=== PATIENT | female | born 1975 | race Caucasian/White ===

== ENCOUNTER 2024-03-22 00:29 | Emergency (ER) | payer OTHER, SELFPAY ==
[2024-03-22 00:34] VITALS: BP 147/80; PULSE 59; TEMP 36.4; O2SAT 99; BMI 29.0
[2024-03-22] MEDS: DOXYCYCLINE MONOHYDRATE 100 MG CAPSULE PO (01:07)
[2024-03-22] MEDS: OXYCODONE HCL/ACETAMINOPHEN 5MG/325MG 1 TAB PO (01:07)
--- NOTE | 2024-03-22 01:53 | ED.GENADUL1 ---
HPI HPI - General Adult General Chief complaint: Headache Stated complaint: headache Time Seen by Provider: 03/22/24 00:38 Source: patient Mode of arrival: walk-in Limitations: no limitations History of Present Illness HPI narrative: 49-year-old female to the emergency department chief complaint of pain. Patient reports she has had a sebaceous cyst on her scalp for many years. It began to hurt tonight. She describes the pain as a 10/10 icepick in her skull pain. No injury to it. No fever, sweats, chills. No other complaints. Related Data Previous Rx's ?Medication ?Instructions ?Recorded doxycycline monohydrate 100 mg 100 mg PO BID 7 days #14 caps 03/22/24 capsule oxycodone-acetaminophen 5 mg-325 1 tab PO Q6H PRN pain 3 days #12 03/22/24 mg tablet (Percocet) tabs Allergies Allergy/AdvReac Type Severity Reaction Status Date / Time ciprofloxacin (From Cipro) Allergy Mild Gastrointestinal Verified 03/22/24 00:39 Upset Opioid HPI Opioid Management Most Recent Opioid Data: Last Pain Scale 8 03/22/24 00:38 03/22/24 Review of Systems ROS Status of ROS 10 or more systems reviewed and unremarkable except as noted in history and below PFSH PFSH Social History Little interest or pleasure in doing things: not at all Feeling down, depressed, or hopeless: not at all Exam Narrative Exam Narrative: VITALS: I have reviewed the triage vital signs. GENERAL: Well developed, well appearing adult in no acute distress. NEURO: Alert and oriented. Moves all extremities. Face is symmetric and expressive. EYES: PERRL. No scleral icterus or conjunctival injection. No discharge. HENT: Normocephalic, atraumatic. Hearing is grossly intact. Nares grossly patent and without discharge. Mucous membranes moist. Pea-sized sebaceous cyst that is mildly inflamed to the right parietal region. NECK: No JVD. Patient moves neck without restriction. EXTREMITIES: Symmetric muscle bulk. No joint swelling. No clubbing, cyanosis, or deformity. SKIN: Warm and dry. Normal turgor. No rash or lesions appreciated. PSYCH: Mood, affect, and interaction is appropriate to the setting. Constitutional Vital Signs, click to edit/add: Last Vital Signs Temp 97.6 F 03/22/24 00:34 Pulse 59 L 03/22/24 00:34 Resp 18 03/22/24 00:34 BP 147/80 H 03/22/24 00:34 Pulse Ox 99 03/22/24 00:34 O2 Del Method Room Air 03/22/24 00:34 Course Vital Signs Vital signs: Vital Signs Temperature 97.6 F 03/22/24 00:34 Pulse Rate 59 L 03/22/24 00:34 Respiratory Rate 18 03/22/24 00:34 Blood Pressure 147/80 H 03/22/24 00:34 Pulse Oximetry 99 03/22/24 00:34 Oxygen Delivery Method Room Air 03/22/24 00:34 Temperature 97.6 F 03/22/24 00:34 Pulse Rate 59 L 03/22/24 00:34 Respiratory Rate 18 03/22/24 00:34 Blood Pressure 147/80 H 03/22/24 00:34 Pulse Oximetry 99 03/22/24 00:34 Oxygen Delivery Method Room Air 03/22/24 00:34 Medical Decision Making MDM Narrative Medical decision making narrative: 49-year-old female to the emergency department chief complaint of painful inflamed sebaceous cyst. She has a history of this. She has had several of them removed by her family doctor. Vital stable. Neurologic examination nonfocal. She is pinpoint tender at the nodule. It hurts to the touch. Will treat with antibiotic. Recommended she follow-up with her family doctor for removal. Percocet for pain. OARRS reviewed. Patient was discharged home. Medical Records Medical records reviewed: Yes I reviewed the patient's medical records Discharge Plan Discharge Chief Complaint: Headache Clinical Impression: Sebaceous cyst Patient Disposition: Home, Self-Care Time of Disposition Decision: 00:55 Condition: Good Mode of Transportation: Private Vehicle Prescriptions / Home Meds: New doxycycline monohydrate 100 mg capsule 100 mg PO BID 7 Days Qty: 14 0RF oxycodone-acetaminophen [Percocet] 5-325 mg tablet 1 tab PO Q6H PRN (Reason: pain) 3 Days Qty: 12 0RF Print Language: Portuguese Instructions: Cyst (ED) Additional Instructions: Call the office of your primary care doctor to arrange for follow-up within the above-stated timeframe. Your ED visit was focused on your acute issue and does not replace primary care. You should review your labs, imaging, and diagnoses from this ED visit with your primary care physician. There may be non-emergent/ incidental findings that need further evaluation. You should review your vital signs including blood pressure with your PCP. If you were prescribed medications you should discuss possible side-effects and drug interactions with your pharmacist. Call 911 or go to the nearest Emergency Department if you develop any new or worsening symptoms. Referrals: SOL SANCHEZ [Primary Care Provider] - 1 week Discharge Date/Time: 03/22/24 01:10
== END 2024-03-22 01:10 | disposition home or self-care (01) ==
PROVIDERS: Emergency Provider Student in an Organized Health Care Education/Training Program; PCP Family Medicine
DX: L72.3 Sebaceous cyst (principal)
CPT/HCPCS: 99283

== ENCOUNTER 2024-04-26 20:03 | Emergency (ER) | payer OTHER, SELFPAY ==
[2024-04-26] VITALS (10 sets, daily range): BP systolic 106–119; BP diastolic 69–78; PULSE 57–76; TEMP 37; O2SAT 91–100; BMI 28.8
--- NOTE | 2024-04-26 20:54 | ECG_ITS ---
The [facility] Test Date: 2024-04-26 Pat Name: THIEN DIAZ Department: Room: - Gender: Female Disability Rater: : 1975 Requested By: [id number] Order Number: [id number] Reading MD: DAISHA DELUNA Measurements Intervals [place] Rate: 55 P: 34 CT: 124 QRS: 69 QRSD: 86 T: 46 QT: 404 QTc: 394 Interpretive Statements 1100 Sinus rhythm No previous ECG available for comparison Electronically Signed On 04-28-2024 6:58:41 EST by DAISHA DELUNA
--- NOTE | 2024-04-26 20:54 | CT_ITS ---
The [address] [address] Patient Name: THIEN DIAZ MRN: [id number] date: 1975 Sex: F Assigned Patient Location: ER Current Patient Location: Accession/Order Number: [id number] Exam Date: 04/26/2024 21:33 Report Date: 04/26/2024 22:10 At the request of: BON MARKER Procedure: CT abdomen pelvis w con EXAM: CT abdomen pelvis w con TECHNIQUE: Axial CT images were obtained of the abdomen and pelvis with intravenous contrast. Sagittal and coronal reformatted images were also obtained. Dose reduction techniques were achieved by using automated exposure control and/or adjustment of mA and/or kV according to patient size and/or use of iterative reconstruction technique. HISTORY: RLQ abd pain, fever COMPARISON: None. FINDINGS: Lower chest: The lower lungs are clear. Liver: 15 mm heterogeneous low-attenuation lesion laterally within segment 5 of liver. Gallbladder: The gallbladder is unremarkable. There is no intra or extrahepatic biliary dilatation. Pancreas: The pancreas is homogeneous without evidence for mass lesion or inflammation. Spleen: The spleen is unremarkable without evidence for mass lesion. Adrenal glands: The adrenal glands are unremarkable Kidneys and bladder: Multifocal chronic scarring of the left renal cortex. Unremarkable right kidney. The ureters demonstrate normal caliber. The urinary bladder is unremarkable. GI Tract: Stomach is unremarkable. Visualized small bowel is unremarkable without evidence for obstruction or active inflammation. No CT evidence for acute appendicitis.Wall thickening throughout the colon, more significant within the proximal sigmoid colon. Liquid stool within the distal colon. Reproductive: 3.8 cm cyst of the left ovary appears simple. Right ovary is unremarkable. Lymph nodes: No retroperitoneal or abdominal lymphadenopathy. Vascular: The aorta is not dilated. Mesenteric, renal and iliac arteries are patent. Peritoneum: No free intraperitoneal air or fluid. No acute inflammation. Abdominal wall: Unremarkable without acute abnormality. CT/CT abdomen pelvis w con IMPRESSION: Wall thickening throughout a majority colon suggesting inflammatory or infectious colitis. Likely stool within the distal colon consistent with diarrheal illness. Subtle low-attenuation lesion within segment 5 of liver. Further evaluation with pre and postcontrast MRI of liver should be considered for further evaluation. Electronically authenticated by: ROSSY LARA Date: 04/26/2024 22:10
--- NOTE | 2024-04-26 20:56 | ED.GENADUL1 ---
HPI HPI - General Adult General Chief complaint: Fever Stated complaint: FEVER Time Seen by Provider: 04/26/24 20:37 Source: patient Mode of arrival: walk-in Limitations: no limitations History of Present Illness HPI narrative: This 49-year-old female presents for evaluation of fevers, chills, nausea, generalized weakness, poor appetite with nausea and diarrhea. The symptoms started Fede, 3 days ago. The patient states multiple people at her job are also sick. She has recently been on doxycycline, clindamycin and Augmentin for an infected sebaceous cyst on her scalp. She is not currently taking any antibiotics. She states that her diarrhea started out as brown liquid stool and is now water. She has abdominal pain and localizes to the right lower quadrant. She denies any headache, nasal congestion, sore throat runny nose or cough. She has no chest pain or shortness of breath. She states she is urinating some but mostly when she has an episode of diarrhea. She denies any specific leg pain or cramps. She denies any specific back pain. She states she does feel achy but thinks it is from laying around in bed for the past several days. Related Data Previous Rx's ?Medication ?Instructions ?Recorded doxycycline monohydrate 100 mg 100 mg PO BID 7 days #14 caps 03/22/24 capsule oxycodone-acetaminophen 5 mg-325 1 tab PO Q6H PRN pain 3 days #12 03/22/24 mg tablet (Percocet) tabs Allergies Allergy/AdvReac Type Severity Reaction Status Date / Time ciprofloxacin (From Cipro) Allergy Mild Gastrointestinal Verified 04/26/24 20:44 Upset Opioid HPI Opioid Management Most Recent Opioid Data: Last Pain Scale 3 04/26/24 22:00 04/26/24 Last ED Pain Assessment 04/26/24 22:00 Review of Systems ROS Status of ROS 10 or more systems reviewed and unremarkable except as noted in history and below PFSH PFSH Social History Little interest or pleasure in doing things: not at all Feeling down, depressed, or hopeless: not at all Exam Narrative Exam Narrative: Vital signs and Nursing Notes reviewed: Patient is afebrile with a normal pulse, normal blood pressure, she is not hypoxic with pulse ox of 100% on room air General: Awake, alert, oriented, nontoxic but mildly ill-appearing female, no respiratory distress HEENT: Normocephalic atraumatic, mucous membranes are dry with a thick white film on the patient's tongue, no swelling of the tongue, uvula or pharyngeal soft tissues Neck: Supple, no meningeal signs, no anterior or posterior cervical lymphadenopathy Chest: Lungs are clear to auscultation with good air entry, there is no wheezing rhonchi or rales appreciated no accessory muscle use, patient is speaking in complete sentences-no chest wall tenderness to palpation CVS: Regular rate and rhythm S1-S2, no murmurs rubs or gallops, pulses are brisk and equal bilaterally ABD: Soft, nondistended, generalized abdominal tenderness, localizes to the right lower quadrant with voluntary guarding, no pulsatile masses appreciated Extremities: Moving all extremities, no lower extremity tenderness or swelling noted, negative Homans' sign, pulses are brisk and equal bilaterally Skin: Normal in appearance without rash,pallor, petechiae or purpura Neuro: No focal deficits Constitutional Vital Signs, click to edit/add: Last Vital Signs Temp 98.6 F 04/26/24 20:41 Pulse 59 L 04/26/24 22:00 Resp 15 04/26/24 22:00 BP 106/71 04/26/24 21:59 Pulse Ox 97 04/26/24 22:00 O2 Del Method Room Air 04/26/24 20:41 Course Vital Signs Vital signs: Vital Signs Temperature 98.6 F 04/26/24 20:41 Pulse Rate 69 04/26/24 20:41 Respiratory Rate 16 04/26/24 20:41 Blood Pressure 113/71 04/26/24 20:41 Pulse Oximetry 100 04/26/24 20:41 Oxygen Delivery Method Room Air 04/26/24 20:41 Temperature 98.6 F 04/26/24 20:41 Pulse Rate 59 L 04/26/24 22:00 Respiratory Rate 15 04/26/24 22:00 Blood Pressure 106/71 04/26/24 21:59 Pulse Oximetry 97 04/26/24 22:00 Oxygen Delivery Method Room Air 04/26/24 20:41 Medical Decision Making MDM Narrative Medical decision making narrative: This 49-year-old female presents for evaluation of 3 days of fevers, chills, abdominal cramps with diarrhea. She has recently been on doxycycline and Augmentin and clindamycin for an infected sebaceous cyst in her scalp. She has not currently on any biotics but has been having diarrhea for the past 3 days that started out as brown stool and is now liquid diarrhea. She is also having abdominal cramps. She does not have any upper respiratory symptoms. She states she feels that she has had a fever because she has had chills and sweats however she does not have any documentation of a fever. She has not taken her temperature at home. In emergency department her temperature was 99.1. She is mildly tender in her right lower quadrant on exam. An IV was placed and she was medicated with IV fluids, Zofran, morphine and Pepcid. Routine labs were ordered. Septic workup was ordered including 2 sets of blood cultures, lactic acid, CBC with differential, comprehensive metabolic profile. CT scan of the abdomen pelvis. An EKG was done upon arrival that is a sinus rhythm at 55 bpm. Influenza and COVID-19 testing are negative. She has a normal white count and hemoglobin. Electrolytes are normal with exception of a mildly low potassium at 3.2. Lactic acid is normal. Blood cultures are pending. CT scan of the abdomen pelvis shows a diffuse colitis without any perforation free air or free fluid or other abnormal findings. The results of the CT scan were discussed with her and she was given a copy for her records. We discussed treatment of colitis and I explained to her it is often antibiotics. She is very reluctant to take more antibiotics after recently being on 3 different antibiotics but ultimately decided that she would take Flagyl. She will be sent home with a requisition for C. difficile assay as she did not have any diarrhea while in the emergency department. On reevaluation she is feeling much better. She declines the need for additional IV fluids. She is tolerating clear liquids. She will be discharged home with prescription for Flagyl, Bentyl and Zofran. She was encouraged to drink plenty of fluids and given a note for work. I also encouraged her to try to eat yogurt that had probiotics in it or purchase Align probiotic to help restore her gut feliciano in light of the recent antibiotic use and to prevent C. difficile. Medical Records Medical records reviewed: Yes I reviewed the patient's medical records Medical records narrative: The [address] [address] [address] Scan Report Signed Patient: THIEN DIAZ MR#: [id number] : 1975 Acct:[id number] Age/Sex: 49 / F ADM Date: 04/26/24 Loc: ER Attending Dr: Ordering Physician: Michelle Bey Date of Service: 04/26/24 Procedure(s): CT abdomen pelvis w con Accession Number(s): [id number] cc: SOL SANCHEZ ~ [place] [address] [place] [address] Patient Name: THIEN DIAZ MRN: [facility]:[id number] date: 1975 Sex: F Assigned Patient Location: ER Current Patient Location: ER Accession/Order Number: [id number] Exam Date: 04/26/2024 21:33 Report Date: 04/26/2024 22:10 At the request of: MICHELLE BEY Procedure: CT abdomen pelvis w con EXAM: CT abdomen pelvis w con TECHNIQUE: Axial CT images were obtained of the abdomen and pelvis with intravenous contrast. Sagittal and coronal reformatted images were also obtained. Dose reduction techniques were achieved by using automated exposure control and/or adjustment of mA and/or kV according to patient size and/or use of iterative reconstruction technique. HISTORY: RLQ abd pain, fever COMPARISON: None. FINDINGS: Lower chest: The lower lungs are clear. Liver: 15 mm heterogeneous low-attenuation lesion laterally within segment 5 of liver. Gallbladder: The gallbladder is unremarkable. There is no intra or extrahepatic biliary dilatation. Pancreas: The pancreas is homogeneous without evidence for mass lesion or inflammation. Spleen: The spleen is unremarkable without evidence for mass lesion. Adrenal glands: The adrenal glands are unremarkable Kidneys and bladder: Multifocal chronic scarring of the left renal cortex. Unremarkable right kidney. The ureters demonstrate normal caliber. The urinary bladder is unremarkable. GI Tract: Stomach is unremarkable. Visualized small bowel is unremarkable without evidence for obstruction or active inflammation. No CT evidence for acute appendicitis.Wall thickening throughout the colon, more significant within the proximal sigmoid colon. Liquid stool within the distal colon. Reproductive: 3.8 cm cyst of the left ovary appears simple. Right ovary is unremarkable. Lymph nodes: No retroperitoneal or abdominal lymphadenopathy. Vascular: The aorta is not dilated. Mesenteric, renal and iliac arteries are patent. Peritoneum: No free intraperitoneal air or fluid. No acute inflammation. Abdominal wall: Unremarkable without acute abnormality. CT/CT abdomen pelvis w con IMPRESSION: Wall thickening throughout a majority colon suggesting inflammatory or infectious colitis. Likely stool within the distal colon consistent with diarrheal illness. Subtle low-attenuation lesion within segment 5 of liver. Further evaluation with pre and postcontrast MRI of liver should be considered for further evaluation. Electronically authenticated by: ROSSY LARA Date: 04/26/2024 22:10 Lab Data Lab results reviewed: Yes I reviewed the patient's lab results Labs: Lab Results 04/26/24 04/26/24 Range/Units 21:05 21:08 WBC 5.8 (4.0-11.0) 10^3/uL RBC 4.55 (4.20-5.40) 10^6/uL Hgb 13.2 (12.0-16.0) g/dL Hct 39.2 (36.0-48.0) % MCV 86.2 (81.0-99.0) fL MCH 29.0 (26.7-34.0) pg MCHC 33.7 (29.9-35.2) g/dL RDW 13.3 (11.0-15.0) % Plt Count 246 (150-450) 10^3/uL MPV 10.9 (9.5-13.5) fL Neut % (Auto) 65.6 (43.0-75.0) % Lymph % (Auto) 15.3 L (20.5-60.0) % [place] % (Auto) 15.6 H (1.7-12.0) % Eos % (Auto) 3.0 (0.9-7.0) % Baso % (Auto) 0.2 (0.2-2.0) % Neut # (Auto) 3.8 (1.4-6.5) 10^3/uL Lymph # (Auto) 0.9 L (1.2-3.8) 10^3/uL [place] # (Auto) 0.9 H (0.3-0.8) 10^3/uL Eos # (Auto) 0.2 (0.0-0.7) 10^3/uL Baso # (Auto) 0.0 (0.0-0.1) 10^3/uL Abs Immat Gran (auto) 0.02 (0.00-0.03) 10^3/uL Imm/Tot Granulo (auto) 0.3 (0.0-0.5) % Sodium 136 (136-145) mmol/L Potassium 3.2 L (3.5-5.1) mmol/L Chloride 104 (98-107) mmol/L Carbon Dioxide 27.3 (21.0-32.0) mmol/L Anion Gap 7.9 BUN 7.0 (7.0-18.0) mg/dL Creatinine 0.97 (0.55-1.02) mg/dL Est GFR ( Amer) >60 (>=60 mL/min/1.73m^2) Est GFR (Non-Af Amer) >60 (>=60 mL/min/1.73m^2) BUN/Creatinine Ratio 7.2 Glucose 124 H (74-106) mg/dL Lactate 0.9 (0.4-2.0) mmol/L Calcium 8.7 (8.5-10.1) mg/dL Total Bilirubin 0.4 (0.2-1.0) mg/dL AST 10 L (15-37) U/L ALT 9 L (14-59) U/L Alkaline Phosphatase 48 (46-116) U/L Total Protein 6.3 L (6.4-8.2) g/dL Albumin 3.0 L (3.4-5.0) g/dL Globulin 3.3 g/dL Albumin/Globulin Ratio 0.9 Lipase 24.0 (16.0-77.0) U/L Influenza Type A Ag Negative Influenza Type B Ag Negative SARS-CoV-2 Ag (CV2AG) Negative (NEGATIVE) ECG Data Attestation: I personally reviewed and interpreted this ECG as follows: (Sinus bradycardia 55 bpm, normal axis, normal intervals, nonspecific ST changes with flattening of T waves, no acute ST segment elevation or T wave inversion) Discharge Plan Discharge Chief Complaint: Fever Clinical Impression: Colitis Patient Disposition: Home, Self-Care Time of Disposition Decision: 22:26 Condition: Good Prescriptions / Home Meds: No Action doxycycline monohydrate 100 mg capsule 100 mg PO BID 7 Days Qty: 14 0RF oxycodone-acetaminophen [Percocet] 5-325 mg tablet 1 tab PO Q6H PRN (Reason: pain) 3 Days Qty: 12 0RF Print Language: Romansh Instructions: Acute Diarrhea (ED), Colitis (ED) Referrals: SOL SANCHEZ [Primary Care Provider] - 1 week
[2024-04-26] MEDS: 0.9 % SODIUM CHLORIDE 1,000 ML 1000 ML IV (21:07)
[2024-04-26] MEDS: FAMOTIDINE/PF 20 MG/2 ML VIAL IV (21:07)
[2024-04-26] MEDS: ONDANSETRON PF 4 MG/2 ML VIAL IV (21:07)
[2024-04-26] MEDS: MORPHINE SULFATE 4 MG/ML VIAL IV (21:08)
[2024-04-26 21:25] LABS: Basophils Percent Auto 0.2 % (0.2-2.0); Eosinophils Absolute Auto 0.2 10^3/uL (0.0-0.7); Hematocrit 39.2 % (36.0-48.0); Hemoglobin 13.2 g/dL (12.0-16.0); Immature Granulocytes Abs Auto 0.02 10^3/uL (0.00-0.03); Immature Granulocytes Pct Auto 0.3 % (0.0-0.5); Lymphocytes Absolute Auto 0.9 10^3/uL (1.2-3.8); Lymphocytes Percent Auto 15.3 % (20.5-60.0); Mean Corpuscular HGB Conc 33.7 g/dL (29.9-35.2); Mean Corpuscular Volume 86.2 fL (81.0-99.0); Mean Platelet Volume 10.9 fL (9.5-13.5); Monocytes Absolute Auto 0.9 10^3/uL (0.3-0.8); Monocytes Percent Auto 15.6 % (1.7-12.0); Neutrophils Absolute Auto 3.8 10^3/uL (1.4-6.5); Neutrophils Percent Auto 65.6 % (43.0-75.0); Platelet Count 246 10^3/uL (150-450); Red Blood Count 4.55 10^6/uL (4.20-5.40); Red Cell Distribution Width 13.3 % (11.0-15.0); White Blood Count 5.8 10^3/uL (4.0-11.0)
[2024-04-26 21:36] LABS: Influenza Virus A Antigen Negative; Influenza Virus B Antigen Negative; Internal Control Within Normal Limits
[2024-04-26 21:37] LABS: Internal Control Within Normal Limits; SARS-CoV-2 Ag NEGATIVE (NEGATIVE)
[2024-04-26 21:39] LABS: Alanine Aminotransferase 9 U/L (14-59); Albumin Globulin Ratio 0.9; Alkaline Phosphatase 48 U/L (46-116); Anion Gap 7.9; Aspartate Amino Transferase 10 U/L (15-37); BUN Creatinine Ratio 7.2; Bilirubin Total 0.4 mg/dL (0.2-1.0); Calcium 8.7 mg/dL (8.5-10.1); Carbon Dioxide 27.3 mmol/L (21.0-32.0); Chloride 104 mmol/L (98-107); Estimated GFR (African America >60 (>=60 mL/min/1.73m^2); Estimated GFR (Non-African Ame >60 (>=60 mL/min/1.73m^2); Globulin 3.3 g/dL; Glucose 124 mg/dL (74-106); Potassium 3.2 mmol/L (3.5-5.1); Sodium 136 mmol/L (136-145); Total Protein 6.3 g/dL (6.4-8.2)
[2024-04-26 21:46] LABS: Lactate/Lactic Acid 0.9 mmol/L (0.4-2.0)
[2024-04-26] MEDS: POTASSIUM CHLORIDE 10 MEQ ER TABLET 20 MEQ PO (22:53)
[2024-04-26] MEDS: METRONIDAZOLE 250 MG TABLET 500 MG PO (22:54)
--- NOTE | 2024-04-27 17:05 | PC.NURSE ---
Patient notified of +C-diff results. Encouraged to f/u with PCP, use proper/frequent handwashing, and avoid shared use of bathroom if possible. States understands.
== END 2024-04-26 23:02 | disposition home or self-care (01) ==
PROVIDERS: Emergency Provider Emergency Medicine; PCP Family Medicine
DX: K52.9 Noninfective gastroenteritis and colitis, unspecified (principal); N83.202 Unspecified ovarian cyst, left side; R10.31 Right lower quadrant pain
CPT/HCPCS: 36415; 74177; 80053; 83605; 83690; 85025; 87040; 87493; 87804; 87811; 93005; 96361; 96374; 96375; 99285; J2270; J2405; Q9967

== ENCOUNTER 2024-04-27 09:32 | Outpatient (REF) | payer OTHER, SELFPAY ==
[2024-04-27 16:53] LABS: C. Difficile PCR POSITIVE
== END 2024-04-27 09:33 | disposition home or self-care (01) ==
LOC: LAB 09:32
PROVIDERS: PCP Family Medicine; Visit Provider Emergency Medicine
DX: K52.9 Noninfective gastroenteritis and colitis, unspecified (principal)
CPT/HCPCS: 87493

== ENCOUNTER 2024-05-08 15:55 | Emergency (ER) | payer OTHER, SELFPAY ==
[2024-05-08 15:58] VITALS: BP 108/59; PULSE 102; TEMP 36.7; O2SAT 99; BMI 31.1
[2024-05-08 16:52] LABS: Hemoglobin 13.5 g/dL (12.0-16.0); Mean Corpuscular HGB Conc 32.9 g/dL (29.9-35.2); Mean Corpuscular Hemoglobin 28.8 pg (26.7-34.0); Mean Corpuscular Volume 87.6 fL (81.0-99.0); Mean Platelet Volume 10.4 fL (9.5-13.5); Platelet Count 293 10^3/uL (150-450); Red Blood Count 4.68 10^6/uL (4.20-5.40); Red Cell Distribution Width 14.1 % (11.0-15.0); White Blood Count 16.7 10^3/uL (4.0-11.0)
[2024-05-08 17:01] LABS: HCG Qualitative NEGATIVE (NEGATIVE); Internal Control Within Normal Limits
[2024-05-08 17:06] LABS: Alanine Aminotransferase 32 U/L (14-59); Albumin Globulin Ratio 1.2; Albumin Level 3.4 g/dL (3.4-5.0); Alkaline Phosphatase 49 U/L (46-116); Anion Gap 10.2; Aspartate Amino Transferase 18 U/L (15-37); BUN Creatinine Ratio 8.1; Bilirubin Total 0.8 mg/dL (0.2-1.0); Carbon Dioxide 27.3 mmol/L (21.0-32.0); Chloride 103 mmol/L (98-107); Estimated GFR (African America >60 (>=60 mL/min/1.73m^2); Estimated GFR (Non-African Ame 60 (>=60 mL/min/1.73m^2); Globulin 2.9 g/dL; Glucose 125 mg/dL (74-106); Potassium 4.5 mmol/L (3.5-5.1); Sodium 136 mmol/L (136-145); Total Protein 6.3 g/dL (6.4-8.2)
[2024-05-08 17:11] LABS: Band Neutrophils Absolute 0.3 10^3/uL (0.0-0.3); Lymphocytes Absolute Manual 1.33 10^3/uL (1.20-3.80); Segmented Neut Absolute Manual 14.52 10^3/uL (1.4-6.5)
--- NOTE | 2024-05-08 17:11 | CT_ITS ---
[place] [id number] Patient Name: THIEN DIAZ MRN: [id number] date: 1975 Sex: F Assigned Patient Location: ER Current Patient Location: ER Accession/Order Number: [id number] Exam Date: 05/08/2024 17:08 Report Date: 05/08/2024 18:34 At the request of: JUAN FRANCISCO BAILEY Procedure: CT abdomen pelvis wo con EXAM: CT scan of the abdomen and pelvis without contrast. Dose reduction technique used: Automated exposure control and/or adjustment of the mA and/or kV according to patient size and/or use of iterative reconstruction technique. REASON FOR EXAM: abd pain RLQ c-diff COMPARISON: CT scan dated 05/01/2024 FINDINGS: Diffuse colonic wall thickening, most probably within the ascending and transverse colon, this appears worsened than on 04/26/2024. Mild left renal parenchymal scarring. Small hepatic cyst. No renal, ureteral or bladder calculi. No hydronephrosis. Normal appendix. No free fluid in the abdomen or pelvis. No free intraperitoneal air. No dilated loops of small bowel or colon. Liver, pancreas, spleen, bilateral kidneys, and bilateral adrenal glands are otherwise unremarkable within the limitations of noncontrast CT. No lymphadenopathy in the abdomen or pelvis. Remainder unremarkable. CT/CT abdomen pelvis wo con IMPRESSION: Findings compatible with colitis which have worsened compared to 04/26/2024. Electronically authenticated by: SAMANTHA BOLANOS Date: 05/08/2024 18:34
--- NOTE | 2024-05-08 17:20 | ED_ITS ---
HPI - Abdominal Pain General Chief Complaint: Nausea/Vomiting/Diarrhea Stated Complaint: POSS CDIFF, HERE W/ IN LAST 10 DAYS Time Seen by Provider: 05/08/24 15:56 Source: patient Mode of arrival: walk-in Limitations: no limitations History of Present Illness HPI narrative: The patient with history of C. difficile diagnosed 10 days ago. She was treated at that time with Flagyl she mentioned that she was getting better until this morning when she started having nausea and abdominal pain, the abdomen pain is generalized but is mostly severe at the right lower quadrant Patient also had some nausea and vomiting and no fever or chills She went to her primary care doctor when she was provided with prescription medication that she mentioned that it was expensive Related Data Home Medications ?Medication ?Instructions ?Recorded ?Confirmed ondansetron HCl 4 mg tablet 4 mg PO Q6H PRN nausea and vomiting 05/08/24 05/08/24 Previous Rx's ?Medication ?Instructions ?Recorded doxycycline monohydrate 100 mg 100 mg PO BID 7 days #14 caps 03/22/24 capsule oxycodone-acetaminophen 5 mg-325 1 tab PO Q6H PRN pain 3 days #12 03/22/24 mg tablet (Percocet) tabs ondansetron 4 mg disintegrating 4 mg PO Q8H PRN nausea and 05/08/24 tablet vomiting 48 hours #10 tabs Allergies Allergy/AdvReac Type Severity Reaction Status Date / Time ciprofloxacin (From Cipro) Allergy Mild Gastrointestinal Verified 04/26/24 20:44 Upset Review of Systems ROS Status of ROS 10 or more systems reviewed and unremark able except as noted in history and below PFSH PFSH Social History Little interest or pleasure in doing things: not at all Feeling down, depressed, or hopeless: not at all Exam Narrative Exam Narrative: Nurses notes and vital signs reviewed and patient is not hypoxic. General: Well-appearing and in no apparent distress. Skin: Warm, dry, no pallor noted. No rash. Head: Normocephalic, atraumatic. Neck: Supple, non-tender. Eye: Pupils are equal, round and EOMI. No scleral icterus. Ears, Nose, Mouth, and Throat: TM are clear, no nasal mucosal hypertrophy. Oral mucosa is moist, no posterior oropharynx erythema, uvula is mid-line Cardiovascular: Regular Rate and Rhythm without murmur, gallop or rub. Respiratory: No accessory muscle use or respiratory distress. Lungs are clear to auscultation, no wheezing, rales or rhonchi Chest Wall: no tenderness Back: No midline thoracic or lumbar vertebral tenderness. No CVA tenderness Musculoskeletal: normal ROM, no calf or popliteal tenderness, no lower extremity edema/swelling GI: Abdomen is soft, non-distended. Normal bowel sounds. No masses appreciated. Tenderness upon deep palpation in the right side .no rebound, guarding, or rigidity noted. Neurological: A&O x4. No cranial nerve dysfunction observed. No truncal ataxia. Moves all extremities. Sensation intact. Psychiatric: Cooperative and interactive. Normal mood and affect. Constitutional Vital Signs, click to edit/add: Last Vital Signs Temp 98.1 F 05/08/24 15:58 Pulse 102 H 05/08/24 15:58 Resp 18 05/08/24 15:58 BP 108/59 05/08/24 15:58 Pulse Ox 99 05/08/24 15:58 O2 Del Method Room Air 05/08/24 15:58 Course Vital Signs Vital signs: Vital Signs Temperature 98.1 F 05/08/24 15:58 Pulse Rate 102 H 05/08/24 15:58 Respiratory Rate 18 05/08/24 15:58 Blood Pressure 108/59 05/08/24 15:58 Pulse Oximetry 99 05/08/24 15:58 Oxygen Delivery Method Room Air 05/08/24 15:58 Temperature 98.1 F 05/08/24 15:58 Pulse Rate 102 H 05/08/24 15:58 Respiratory Rate 18 05/08/24 15:58 Blood Pressure 108/59 05/08/24 15:58 Pulse Oximetry 99 05/08/24 15:58 Oxygen Delivery Method Room Air 05/08/24 15:58 MDM - Abdominal Pain MDM Narrative Medical decision making narrative: The patient did had leukocytosis but she had no elevated lactic acid and the rest of the chemistry was normal She was started on IV fluid and sent to Toradol and Zofran I provided her with 1 dose of Flagyl while awaiting for the CAT scan But the main plan will be starting the patient on vancomycin p.o. for the next 10 days The patient was feeling much better after initial treatment with IV fluid and Toradol and Zofran Her CAT scan did show increase in the colitis and although the patient lactic acid is normal and chemistry was within normal I did advise the patient to be admitted but she did not want that and she just wanted to go home with the vancomycin I explained to her that right now that she will be discharged with vancomycin 125 mg every 6 hours for the next 10 days and she was instructed that she need to observe improvement in the next 24 hours The patient to come back to the ER if no improvement within 24 hours and to follow-up with her primary care doctor soon as possible Lab Data Labs: Lab Results 05/08/24 Range/Units 16:43 WBC 16.7 H (4.0-11.0) 10^3/uL RBC 4.68 (4.20-5.40) 10^6/uL Hgb 13.5 (12.0-16.0) g/dL Hct 41.0 (36.0-48.0) % MCV 87.6 (81.0-99.0) fL MCH 28.8 (26.7-34.0) pg MCHC 32.9 (29.9-35.2) g/dL RDW 14.1 (11.0-15.0) % Plt Count 293 (150-450) 10^3/uL MPV 10.4 (9.5-13.5) fL Seg Neuts % (Manual) 87.0 H (43.0-75.0) Band Neutrophils % 2.0 (0-5) % Lymphocytes % (Manual) 8.0 L (20.5-60.0) % Monocytes % (Manual) 3.0 (1.7-12.0) % Eosinophils % (Manual) 0.0 L (0.9-7.0) % Basophils % (Manual) 0.0 L (0.2-2.0) % Neutrophils # (Manual) 14.52 H (1.4-6.5) 10^3/uL Band Neutrophils # 0.3 (0.0-0.3) 10^3/uL Lymphocytes # (Manual) 1.33 (1.20-3.80) 10^3/uL Monocytes # (Manual) 0.50 (0.30-0.80) 10^3/uL Eosinophils # (Manual) 0.00 (0.00-0.70) 10^3/uL Basophils # (Manual) 0.00 (0.00-0.10) 10^3/uL Sodium 136 (136-145) mmol/L Potassium 4.5 (3.5-5.1) mmol/L Chloride 103 (98-107) mmol/L Carbon Dioxide 27.3 (21.0-32.0) mmol/L Anion Gap 10.2 BUN 8.0 (7.0-18.0) mg/dL Creatinine 0.99 (0.55-1.02) mg/dL Est GFR ( Amer) >60 (>=60 mL/min/1.73m^2) Est GFR (Non-Af Amer) 60 (>=60 mL/min/1.73m^2) BUN/Creatinine Ratio 8.1 Glucose 125 H (74-106) mg/dL Lactate 1.0 (0.4-2.0) mmol/L Calcium 9.0 (8.5-10.1) mg/dL Total Bilirubin 0.8 (0.2-1.0) mg/dL AST 18 (15-37) U/L ALT 32 (14-59) U/L Alkaline Phosphatase 49 (46-116) U/L Total Protein 6.3 L (6.4-8.2) g/dL Albumin 3.4 (3.4-5.0) g/dL Globulin 2.9 g/dL Albumin/Globulin Ratio 1.2 Serum HCG, Qual Negative (NEGATIVE) Discharge Plan Discharge Chief Complaint: Nausea/Vomiting/Diarrhea Clinical Impression: Clostridium difficile enteritis Patient Disposition: Home, Self-Care Time of Disposition Decision: 17:23 Condition: Good Prescriptions / Home Meds: New ondansetron 4 mg tablet,disintegrating 4 mg PO Q8H PRN (Reason: nausea and vomiting) 2 Days Qty: 10 0RF No Action doxycycline monohydrate 100 mg capsule 100 mg PO BID 7 Days Qty: 14 0RF oxycodone-acetaminophen [Percocet] 5-325 mg tablet 1 tab PO Q6H PRN (Reason: pain) 3 Days Qty: 12 0RF ondansetron HCl 4 mg tablet 4 mg PO Q6H PRN (Reason: nausea and vomiting) Print Language: Trinidadian Instructions: C. Diff (Clostridioides Difficile) Infection (DC) Additional Instructions: The patient was discharged with 125 of vancomycin every 6 hours for the next 10 days Referrals: SOL SANCHEZ [Primary Care Provider] - 1 week
[2024-05-08] MEDS: KETOROLAC TROMETHAMINE 30 MG/ML VIAL 15 MG IVP (17:26)
[2024-05-08] MEDS: ONDANSETRON PF 4 MG/2 ML VIAL IV (17:26)
[2024-05-08] MEDS: 0.9 % SODIUM CHLORIDE 1,000 ML 1000 ML IV (17:26)
[2024-05-08] MEDS: METRONIDAZOLE/SODIUM CHLORIDE 500 MG/100 ML PREMIX 100 MG IV (18:05)
[2024-05-08] MEDS: VANCOMYCIN HCL 7,500 MG/150 ML BOTTLE 125 MG PO (19:08)
[2024-05-08 19:12] VITALS: BP 101/49; PULSE 80; TEMP 37.5; O2SAT 94
== END 2024-05-08 19:20 | disposition home or self-care (01) ==
PROVIDERS: Emergency Provider Emergency Medicine; PCP Family Medicine
DX: A04.72 Enterocolitis due to Clostridium difficile, not specified as recurrent (principal)
CPT/HCPCS: 36415; 74176; 80053; 83605; 84703; 85007; 85027; 96361; 96365; 96375; 99285; J1836; J1885; J2405

== ENCOUNTER 2024-11-15 15:02 | Emergency (ER) | payer OTHER, SELFPAY ==
[2024-11-15 15:06] VITALS: BP 132/75; PULSE 70; TEMP 36.7; O2SAT 100; BMI 27.7
--- NOTE | 2024-11-15 15:21 | ED_ITS ---
HPI - Extremity Problem General Chief complaint: Extremity Problem, Nontraumatic Stated complaint: infected right index finger tip Time Seen by Provider: 11/15/24 15:04 Source: patient Mode of arrival: walk-in Limitations: no limitations History of Present Illness HPI Narrative: Patient is a 49-year-old female who presents to the ER with concerns of increased pain to her right index finger. Patient states symptoms started last Saturday noting that her finger was sore before she got her nails done which happens every 2 to 3 weeks. She was then working in the yard and feels she may have got a thorn or a bee sting to the same finger with increased soreness and pain. She was seen in urgent care on had an x-ray that did not show any foreign body per patient and was started on Bactrim. She was advised to ice the finger with concerns of a FELON . Patient states she has taken Bactrim since but noticed increased pain today and redness along the ulnar side of her index finger. The area of question for thorn or bee sting is at the level of the middle phalanx radial aspect with very minimal evidence of erythema or skin irritation and appears separate from the nailbed. Patient unsure of her last tetanus. She is left-hand dominant. She denies any traumatic injury to her finger such as crush or fall. She denies a history of diabetes MD Complaint: Reports extremity pain and extremity swelling Onset (ago): week(s) Pain Consistency: Reports constant Location: Reports right Quality: Reports aching Relieving factors: Reports nothing Exacerbating factors: Reports palpation Related Data Home Medications ?Medication ?Instructions ?Recorded ?Confirmed No Known Home Medications 11/15/24 07/11/04 Allergies Allergy/AdvReac Type Severity Reaction Status Date / Time ciprofloxacin (From Cipro) Allergy Mild Gastrointestinal Verified 04/26/24 20:44 Upset Review of Systems ROS Constitutional Denies: fever or chills Eyes Denies: change in vision Ears, nose, mouth, and throat Denies: throat pain Cardiovascular Denies: chest pain Respiratory Denies: shortness of breath Gastrointestinal Denies: abdominal pain, nausea, vomiting or diarrhea Genitourinary Denies: painful urination Musculoskeletal Denies: back pain Neurological Denies: headache Psychiatric Denies: anxiety PFSH PFSH Social History Little interest or pleasure in doing things: not at all Feeling down, depressed, or hopeless: not at all Exam Narrative Exam Narrative: Nurse's notes and vital signs reviewed. Patient is not hypoxic. General: The patient appears well and in no apparent distress. Patient is resting comfortably on cart. Skin: Warm, dry, no pallor noted. Erythema most prominent to the ulnar aspect of the nail margin. Is also some erythema to the radial aspect of the nail margin but less prominent. No obvious streaking. Small possible puncture at the middle phalanx radial aspect with very localized reaction but no visible foreign body. Patient has 2 dark spots at the radial pad of her distal phalanx of the index finger that are nontender on palpation the pad of the finger is not overly tender. A bedside ultrasound was used and there was no fluid noted in the pad of the finger. Head: Normocephalic, atraumatic Eye: Normal conjunctiva Respiratory: Patient is in no distress Musculoskeletal: The hand and wrist shows no obvious deformity. There was mild swelling noted to ulnar aspect of index finger The patient had full rom despite pain. neg knavels sign. The patient had tenderness noted to the distal phalanx along the proximal nail bed and ulnar aspect. concerning for developing paronychia. skin wrinkle present to pad of finger and felon is less likely. The patient had no tenderness in the anatomical snuff box. The patient had no pain with axial loading of the thumb. Pulses are intact at brachial and radial 2+. There was no deficit at the elbow or shoulder. The patient has normal ca pillary refill to all distal digits. The patient has no evidence of cyanosis or mottling. The patient is able to flex and extend all digits without difficulty. Neurological: A&O x4, normal sensory, normal motor Psychiatric: Cooperative Constitutional Vital Signs, click to edit/add: Last Vital Signs Temp 98.0 F 11/15/24 15:06 Pulse 70 11/15/24 15:06 Resp 18 11/15/24 15:06 BP 132/75 11/15/24 15:06 Pulse Ox 100 11/15/24 15:06 O2 Del Method Room Air 11/15/24 15:06 Course Vital Signs Vital signs: Vital Signs Temperature 98.0 F 11/15/24 15:06 Pulse Rate 70 11/15/24 15:06 Respiratory Rate 18 11/15/24 15:06 Blood Pressure 132/75 11/15/24 15:06 Pulse Oximetry 100 11/15/24 15:06 Oxygen Delivery Method Room Air 11/15/24 15:06 Temperature 98.0 F 11/15/24 15:06 Pulse Rate 70 11/15/24 15:06 Respiratory Rate 18 11/15/24 15:06 Blood Pressure 132/75 11/15/24 15:06 Pulse Oximetry 100 11/15/24 15:06 Oxygen Delivery Method Room Air 11/15/24 15:06 MDM - Extremity (Nontraumatic) MDM Narrative Medical decision making narrative: Patient presents with what appears to be a slow-growing paronychia started on antibiotics on without relief yet. More swelling noted to the ulnar aspect of the finger. Treatment options discussed and incision and drainage recommended given patient's significant pain however bedside ultrasound did not reveal any significant fluid collections given the small amount of space. She reports having x-ray done on did not show any radiopaque foreign body but 2 organic areas of superficial foreign body were visible and patient co nsented to removal to eliminate this as a potential concern. Patient presents with appears to be a slow developing paronychia most prominence to the ulnar distal edge of the nail margin she does have a gel coating on her nail that is prominent in the long. Tetanus was updated foreign bodies along the radial aspect were nontender on palpation and easily removed during incision and drainage procedure which was discussed with the patient at bedside. She does not have significant pain over the pad of her finger for concern of a felon at this time in the distal ulnar aspect of the nail margin is most irritated with erythema and swelling. A bedside ultrasound was used and there was very minimal fluid in this location. There was no fluid noted along the pad of the finger and she is negative for Knievel signs. At this time we have recommended the patient soak the finger multiple times daily and continue her Bactrim. We discussed adding Augmentin but patient states she had C. difficile a year ago for a cyst on her head after being placed on multiple antibiotics. We discussed the need to follow-up in 2 days for reevaluation and possible repeat drainage procedure versus continued observation. She may return to the ER or her PCPs office for evaluation of this. We discussed the importance of soaking and pain medication as needed. Patient thankful had no further concerns or questions Patient was offered pain medications but states she is taking Tylenol and Motrin and has some leftover Percocet at home from another procedure. She will take least effective dose for pain control if needed and return to the ER if symptoms worsen or new symptoms develop. Patient aware at this time on clinical exam and with ultrasound evaluation of the fingertip I do not see a collection of fluid concerning for a Felon which was her chief concern. We discussed her nail soreness since visiting the nail salon last Saturday with a combination of symptoms today despite being placed on oral Bactrim. Has been icing her finger but not soaking it. The patient is to followup with primary care physician/ ER in next 2 days or to return to the emergency department should any of the signs or symptoms worsen or new symptoms develop. Patient had questions answered. The patient agrees with the following Diagnosis and Treatment plan and the patient will be discharged home. Discharge Plan Discharge Chief Complaint: Extremity Problem, Nontraumatic Clinical Impression: Paronychia of right index finger, Superficial foreign body (sliver) Patient Disposition: Home, Self-Care Time of Disposition Decision: 16:27 Condition: Good Prescriptions / Home Meds: No Action No Known Home Medications Print Language: Turkmen Instructions: Paronychia (ED) Additional Instructions: Follow up with pcp in 48 hours or return to ER for inspection SOAK with eposom salt or warm salt water solution, multiple times daily Referrals: SOL SANCHEZ [Primary Care Provider, Family Practice] - As soon as possible Procedures ED Procedure Instructions Procedures Procedures: Incision and drainage: paryonochia right index finger. A single layer of iodine was used to prep the area. Drapes were placed to ensure isolation of the abscess and surrounding skin tissue. A Digital block of the index finger was performed with 1% lidocaine and 0.5% Bupivicaine . Incision was made with an 11 blade along the most erythematous part of the ulnar aspect of the finger. small flash of clear/ yellow fluid express, but no purulent material a 21 G needle was use to seperate the nail boarder back to the eponicum, but no additional purulents or fluid was noted/ ( must prominent area is the distal ulnar nail edge were scapel was used, bleedig controlled. Pt had 2 superifical foreign bodies to radial aspect of finger which appeared organic and were easily removed with a seperate 21 G needle and pick ups. Pt tolerated procedure well and was neurovasc intact.. but noted pressure discomfort with repetitive squeezing pressure.. Patient is to follow-up in the next 2 days with PCP or ED to have area evaluated.
[2024-11-15] MEDS: ADACEL DIPH,PERTUSS(ACELL),TET VAC/PF 0.5 ML ADULT SYRINGE IM (15:32)
[2024-11-15] MEDS: LIDOCAINE HCL 1% 100 MG/10 ML MDV INJ (15:32)
[2024-11-15] MEDS: BUPIVACAINE HCL 0.5% PF 50 MG/10 ML VIAL 5 ML INJ (15:33)
== END 2024-11-15 16:36 | disposition home or self-care (01) ==
PROVIDERS: Emergency Provider Emergency Medicine; PCP Family Medicine
DX: L03.011 Cellulitis of right finger (principal); S60.450A Superficial foreign body of right index finger, initial encounter; X58.XXXA Exposure to other specified factors, initial encounter; Z23 Encounter for immunization
CPT/HCPCS: 10060; 90471; 90715; 99283; J0665

== ENCOUNTER 2024-12-05 12:49 | Emergency (ER) | payer OTHER, SELFPAY ==
[2024-12-05 12:56] VITALS: BP 130/77; PULSE 86; TEMP 36.6; O2SAT 96; BMI 27.4
--- NOTE | 2024-12-05 13:04 | XR_ITS ---
[facility] [id number] Patient Name: THIEN DIAZ MRN: [id number] date: 1975 Sex: F Assigned Patient Location: ER Current Patient Location: ED.MAIN Accession/Order Number: [id number] Exam Date: 12/05/2024 13:58 Report Date: 12/05/2024 14:01 At the request of: THELMA MCCALL MD Procedure: XR knee RT 3V RIGHT ANKLE - 3 views right knee 3 views, right tib-fib 2 views CLINICAL HISTORY: fall COMPARISON: None FINDINGS: Right knee: No knee joint effusion or acute bony process. Joint spaces appear maintained. Right tib-fib: No focal soft tissue abnormality or acute bony process. Right ankle: No focal soft tissue abnormality. Ankle mortise appears intact without acute bony process. Plantar spurring. XR/XR knee RT 3V IMPRESSION: NO ACUTE BONY PROCESS. Impression dictated by: Sonny Ohara Jr., D.O. 12/05/2024 2:01 PM Dictation Location[facility] Electronically authenticated by: [id number] Y Date: 12/05/2024 14:01
--- NOTE | 2024-12-05 13:04 | XR_ITS ---
[facility] [id number] Patient Name: THIEN DIAZ MRN: [id number] date: 1975 Sex: F Assigned Patient Location: ER Current Patient Location: ED.MAIN Accession/Order Number: [id number] Exam Date: 12/05/2024 13:58 Report Date: 12/05/2024 14:01 At the request of: THELMA MCCALL MD Procedure: XR knee RT 3V RIGHT ANKLE - 3 views right knee 3 views, right tib-fib 2 views CLINICAL HISTORY: fall COMPARISON: None FINDINGS: Right knee: No knee joint effusion or acute bony process. Joint spaces appear maintained. Right tib-fib: No focal soft tissue abnormality or acute bony process. Right ankle: No focal soft tissue abnormality. Ankle mortise appears intact without acute bony process. Plantar spurring. XR/XR tibia fibula RT 2V IMPRESSION: NO ACUTE BONY PROCESS. Impression dictated by: Sonny Ohara Jr., D.O. 12/05/2024 2:01 PM Dictation Location: [employer] Electronically authenticated by: [id number] Y Date: 12/05/2024 14:01
--- NOTE | 2024-12-05 13:04 | ED_ITS ---
HPI HPI - General Adult General Chief complaint: Extremity Injury, Lower Stated complaint: FALL 12/01/2024; R LEG PAIN Time Seen by Provider: 12/05/24 12:53 Source: patient Mode of arrival: walk-in History of Present Illness HPI narrative: 49-year-old female presents for pain in her right knee down to her ankle. 4 days ago she slipped on algae that was on the dock while she was kayaking and she landed on this area. Since that it has been painful and has gotten a bit swollen. She points to the knee and the ankle to indicate most of the pain. She noted her calf was swollen as well. Related Data Previous Rx's ?Medication ?Instructions ?Recorded acetaminophen 300 mg-codeine 30 mg 1 tab PO Q6H PRN pa in 5 days #20 12/05/24 tablet tabs ibuprofen 800 mg tablet 800 mg PO Q8H PRN pain #20 t abs 12/05/24 Allergies Allergy/AdvReac Type Severity Reaction Status Date / Time ciprofloxacin (From Cipro) Allergy Mild Gastrointestinal Verified 04/26/24 20:44 Upset Opioid HPI Opioid Management Most Recent Opioid Data: Last Pain Scale 10 11/15/24, 15:10 Review of Systems ROS Narrative A ten point review of systems is negative except as noted above. PFSH PFSH Social History Little interest or pleasure in doing things: not at all Feeling down, depressed, or hopeless: not at all Exam Narrative Exam Narrative: Nurses note and vital signs reviewed and patient is not hypoxic. General: The patient appears uncomfortable. Skin: Warm, dry, no pallor noted. There is no rash noted. Head: Normocephalic, atraumatic Eye: Normal conjunctiva, no drainage Ears, Nose, Mouth, and Throat: oral mucosa is moist. Nares patent. Cardiovascular: Regular Rate and Rhythm Respiratory: Patient is in no distress, no accessory muscle use, lungs are clear to auscultation, no wheezing, rales or rhonchi Back: non-tender GI: Soft and nontender Musculoskeletal: She has swelling in the right calf. The skin of the lower leg is intact and she has discomfort in the right knee and the right ankle area. Capillary refill brisk in her ankle. Foot nontender. Neurological: A&O, normal speech Psychiatric: Cooperative Constitutional Vital Signs, click to edit/add: Last Vital Signs Temp 98 F 07/26/25 12:56 Pulse 86 12/05/24 12:56 Resp 16 12/05/24 12:56 BP 130/77 12/05/24 12:56 Pulse Ox 96 12/05/24 12:56 O2 Del Method Room Air 12/05/24 12:56 Course Vital Signs Vital signs: Vital Signs Temperature 98 F 12/05/24 12:56 Pulse Rate 86 12/05/24 12:56 Respiratory Rate 16 12/05/24 12:56 Blood Pressure 130/77 12/05/24 12:56 Pulse Oximetry 96 12/05/24 12:56 Oxygen Delivery Method Room Air 12/05/24 12:56 Temperature 98 F 12/05/24 12:56 Pulse Rate 86 12/05/24 12:56 Respiratory Rate 16 12/05/24 12:56 Blood Pressure 130/77 12/05/24 12:56 Pulse Oximetry 96 12/05/24 12:56 Oxygen Delivery Method Room Air 12/05/24 12:56 Medical Decision Making MDM Narrative Medical decision making narrative: X-rays and Doppler show no fractures or DVT and she is discharged home. She was prescribed Tylenol 3 and ibuprofen. Treatment diagnosis and follow-up were discussed with the patient. Differential Diagnosis Differential Diagnosis: Fracture, contusion, DVT Imaging Data Knee, tibia, ankle x-rays: Radiologist's impression: ITS Impressions Ankle X-Ray 12/05/24 13:04 IMPRESSION: NO ACUTE BONY PROCESS. Impression dictated by: Sonny Ohara Jr., D.O. 12/05/2024 2:01 PM Dictation Location: [place] Electronically authenticated by: [id number] Y Date: 12/05/2024 14:01 Knee X-Ray 12/05/24 13:04 IMPRESSION: NO ACUTE BONY PROCESS. Impression dictated by: Sonny Ohara Jr., D.O. 12/05/2024 2:01 PM Dictation Location: [employer] Electronically authenticated by: [id number] Y Date: 12/05/2024 14:01 Tibia/Fibula X-Ray 12/05/24 13:04 IMPRESSION: NO ACUTE BONY PROCESS. Impression dictated by: Sonny Ohara Jr., D.O. 12/05/2024 2:01 PM Dictation Location: [place] Electronically authenticated by: [id number] Y Date: 12/05/2024 14:01 Doppler per technologist shows no DVTs Discharge Plan Discharge Chief Complaint: Extremity Injury, Lower Clinical Impression: Leg pain, right Patient Disposition: Home, Self-Care Time of Disposition Decision: 15:54 Condition: Good Mode of Transportation: Private Vehicle Prescriptions / Home Meds: New acetaminophen-codeine 300-30 mg tablet 1 tab PO Q6H PRN (Reason: pain) 5 Days Qty: 20 0RF ibuprofen 800 mg tablet 800 mg PO Q8H PRN (Reason: pain) Qty: 20 0RF Print Language: Frisian Instructions: Leg Pain (ED) Referrals: SOL SANCHEZ [Primary Care Provider, Family Practice] - 1 week
--- NOTE | 2024-12-05 13:04 | XR_ITS ---
[facility] [place] [id number] Patient Name: THIEN DIAZ MRN: [id number] date: 1975 Sex: F Assigned Patient Location: ER Current Patient Location: ED.MAIN Accession/Order Number: [id number] Exam Date: 12/05/2024 13:58 Report Date: 12/05/2024 14:01 At the request of: THELMA MCCALL MD Procedure: XR knee RT 3V RIGHT ANKLE - 3 views right knee 3 views, right tib-fib 2 views CLINICAL HISTORY: fall COMPARISON: None FINDINGS: Right knee: No knee joint effusion or acute bony process. Joint spaces appear maintained. Right tib-fib: No focal soft tissue abnormality or acute bony process. Right ankle: No focal soft tissue abnormality. Ankle mortise appears intact without acute bony process. Plantar spurring. XR/XR ankle RT min 3V IMPRESSION: NO ACUTE BONY PROCESS. Impression dictated by: Sonny Ohara Jr., D.O. 12/05/2024 2:01 PM Dictation Location: [facility] Electronically authenticated by: [id number] Y Date: 12/05/2024 14:01
--- OUTSIDE RECORDS SUMMARY | 2024-12-05 13:04 | XMS_ITS | Clinical Summary ---
Author Organization [facility] Address [address] [place] [address] Care Team Providers Care Note Teller Name Role Phone Saleem Murphy MD Primary Care Provider [phone] Allergies Active Allergy Reactions Criticality Noted Date Comments Ciprofloxacin GI intolerance 06/24/2024 Other Reaction(s): GI upset Meloxicam Dizziness 08/05/2024 Medications Bacillus Coagulans-Inulin (Probiotic) 1-250 BILLION-MG capsule 05/13/2024 Active ibuprofen 200 MG tablet Every 6 hours as needed 07/10/2024 Active acetaminophen (Tylenol 8 Hour) 650 MG ER tablet Take 650 mg by mouth every 8 (eight) hours if needed for mild pain Do not crush, chew, or split. Active Active Problems No known active problems Family History Medical History Relation Name Comments Cancer Father's Brother Heart disease Maternal Grandfather Stroke Maternal Grandfather Broken bones Mother Katie Swain Diabetes Mother Katie Swain Heart disease Mother Katie Swain Mental illness Mother Katie Swain Diabetes Paternal Grandmother Heart disease Paternal Grandmother Hypertension Paternal Grandmother Mental illness Paternal Grandmother Broken bones Sister Jeimy Roche Relation Name Status Comments Father Alive Father's Brother Maternal Grandfather Mother Katie Swain Alive Paternal Grandmother Sister Jeimy Roche Social History Tobacco Use Types Packs/Day Years Used Date Smoking Tobacco: Never Smokeless Tobacco: Never Tobacco Cessation:Counseling Given: Not Answered Alcohol Use Standard Drinks/Week Comments Yes 0 (1 standard drink = 0.6 oz pure alcohol) Social Drinker one to two drinks a month on average Comments Unknown Sex and Gender Information Value Date Recorded Sex Assigned at Female 07/15/2024 9:01 PM EST Legal Sex Female 6:39 PM EDT Gender Identity Female 07/15/2024 9:01 PM EST Sexual Orientation Not on file Last Filed Vital Signs Vital Sign Reading Time Taken Comments Blood Pressure - - Pulse - - Temperature - - Respiratory Rate - - Oxygen Saturation - - Inhaled Oxygen Concentration - - Weight 88.5 kg (195 lb) 08/05/2024 8:41 AM EDT Height 167.6 cm (5' 6 ) 08/05/2024 8:41 AM EDT Body Mass Index 31.47 08/05/2024 8:41 AM EDT Plan of Treatment Not on file Insurance [employer] Care Teams Note Teller Relationship Specialty Start Date End Date Saleem Murphy MD PCP - General Family Medicine 07/13/24
== END 2024-12-05 16:00 | disposition home or self-care (01) ==
PROVIDERS: Emergency Provider Emergency Medicine; PCP Family Medicine
DX: M79.661 Pain in right lower leg (principal)
CPT/HCPCS: 73562; 73590; 73610; 93971; 99285

== ENCOUNTER 2024-12-16 12:10 | Outpatient (REF) | payer OTHER, SELFPAY ==
[2024-12-16 17:39] LABS: C. Difficile PCR NEGATIVE
== END 2024-12-16 12:11 | disposition home or self-care (01) ==
LOC: LAB 12:10
PROVIDERS: PCP Family Medicine; Visit Provider Internal Medicine Gastroenterology
DX: R19.7 Diarrhea, unspecified (principal)
CPT/HCPCS: 87045; 87046; 87427; 87493

== ENCOUNTER 2024-12-23 11:58 | Outpatient (OUT) | payer OTHER, SELFPAY ==
--- OUTSIDE RECORDS SUMMARY | 2024-12-23 12:02 | XMS_ITS | Continuity of Care Document ---
Author Organization [facility] Address [address] [place] [address] Phone Care Team Providers Care Medical Billing Specialist Name Role Phone Saleem Murphy DO Primary Care Provider Noni Barry APRN Attending Provider Saleem Murphy DO Attending Provider [phone] Care Teams Patient Care Team Team Status: Active Member Role Status Dates Saleem Murphy DO Primary Care Provider Active Visit Care Team Team Status: Inactive Member Role Status Dates Saleem Murphy DO Primary Care Provider Active Start: November 12, 2024 End: November 12, 2024 Noni Barry APRN Attending Provider Active Sta rt: November 12, 2024 End: November 12, 2024 Visit Care Team Team Status: Inactive Member Role Status Dates Saleem Murphy DO Primary Care Provider Active Start: November 12, 2024 End: November 12, 2024 Noni Barry APRN Attending Provider Active Sta rt: November 12, 2024 End: November 12, 2024 Visit Care Team Team Status: Inactive Member Role Status Dates Saleem Murphy DO Primary Care Provider Active Start: November 17, 2024 End: November 17, 2024 Saleem Murphy DO Attending Provider Active S tart: November 17, 2024 End: November 17, 2024 Chief Complaint and Reason for Visit Chief Complaint Admit Date poss bug bite, right pointer finger swel ling November 12, 2024 9:58am M79.644 November 12, 2024 10:48 am Infected finger/fingernail November 17 1:43pm Reason for Visit Admit Date Cellulitis of right index finger November d2024 9:58am Paronychia of right index finger November 1:43pm Allergies, Adverse Reactions, Alerts Allergen Type Severity Reaction Last Updated Verified Status ciprofloxacin Allergy Unknown GI upset November 12, 2024 10:05am Dylan s Active Social History Smoking Status Status Start Date End Date Date of Observa tion Never smoked tobacco (finding) November 17, 2024 1:55pm Observation Status Observation Response Date of Response Legal Sex Female (finding) Sex Assigned At Female 1975 Family History Relationship Condition Age at Onset Recorded Date/T shawn aunt Unknown Chronic obstructive pulmonary disease Unk nown father Dementia Unknown Hypertension Unknown mother Diabetes mellitus Unknown Heart disease Unknown Dementia Unknown Problems Active Problems Medical Problem Onset Date Status Right lower quadrant pain Unknown Active C. difficile diarrhea Unknown Active Right anterior knee pain Unknown Active Screening for colon cancer Unknown Activ e Overweight (BMI 25.0-29.9) Unknown Activ e Positive VERNA (antinuclear antibody) Unknown Active Migraines Unknown Active Urinary urgency Unknown Active BMI 32.0-32.9,adult Unknown Active Urge incontinence of urine Unknown Activ e Unspecified vitamin D deficiency Unknown Active Medications Medication Status Dose Units Route Directions Qty Days St art Date Stop Date End Date Instructions Adherence Fidaxomicin 200 mg tablet Discont inued 200 MG PO Twice daily [facility] 1:00am 2024 11:53 am Phentermine 37.5 mg tablet Discont inued 1 TAB PO Daily 2023 1:00am 2023 11:28 am FreeTextSi tablet before breakfast Orally Once a day; Note: Source Status: Taking; Refills: 0; Qty: 30 Tablet; Provider: Katherine Tai Phentermine 37.5 mg tablet Discont inued 37.5 MG PO Daily 2023 11:23a m July 23, 2023 10:51 am Phentermine 37.5 mg tablet Discont inued 37.5 MG PO Daily July 23, 2023 10:48a m September 03, 2023 2:02p m Mirabegron 25 mg tablet extended release 24 hr Discont inued MG PO December 09, 2023 12:00a m Novem nehemiah 2023 3:23p m Ofloxacin 0.3 % drops Discont inued 10 DROPS OTIC Daily 5 December 09, 2023 12:00a m Octob er 2023 10:50 am right Doxycycline Monohydrate 100 mg capsule Discont inued 100 MG PO Twice daily Novemb er 2023 1:00am Novem nehemiah 2023 12:46 pm Oxycodone-A cetaminophe n 5-325 mg tablet Discont inued 1 TAB PO Every 6 hours as needed for pain Novemb er 2023 1:00am Decem nehemiah 2023 11:41 am Tramadol 50 mg tablet Discont inued 50 MG PO Every 8 hours as needed for pain 30 10 Novemb er 2023 1:00am Decem nehemiah 2023 11:41 am probiotic Discont inued PO Decemb er 2023 1:00am Febru tanya 2024 11:52 am Phentermine -Topiramate (Qsymia) 7.5-46 mg capsule, ER multiphase 24 hr Active 1 CAP PO Daily November 12, 2024 12:00a m Complies with drug therapy Sulfamethox azole-Trime thoprim (Bactrim Ds) 800-160 mg tablet Active 1 TAB PO Twice daily 14 November 12, 2024 12:00a m with food Complies with drug therapy Albuterol Sulfate 90 mcg/actuati on HFA aerosol inhaler Discont inued INHALA TION August 29, 2023 12:00a m October 08, 2023 9:02a m Nitrofurant oin Monohyd/M-C ryst (Macrobid) 100 mg capsule Discont inued 100 MG PO Q12H 14 September 03, 2023 12:00a m October 01, 2023 12:04 pm Phentermine 37.5 mg tablet Discont inued 37.5 MG PO Daily 30 September 03, 2023 12:48p m October 08, 2023 9:01a m Albuterol Sulfate 90 mcg/actuati on HFA aerosol inhaler Discont inued INHALA TION as needed October 08, 2023 9:02am December 09, 2023 10:14 am Prednisone 20 mg tablet Discont inued 0 PO daily 18 9 Octobe r 2023 12:00a m Novem nehemiah 2023 3:23p m 3 p.o. daily x 3 days, 2 p.o. daily x 3 days, 1 p.o. daily x 3 days -with food Ibuprofen (Motrin Ib) 200 mg tablet Discont inued 200 MG PO Every 6 hours as needed Novemb er 2023 1:00am Febru tanya 2024 11:52 am Clindamycin Hcl 300 mg capsule Discont inued 300 MG PO Three times daily 21 7 Novemb er 2023 1:00am Decem nehemiah 2023 5:34p m Amoxicillin -Pot Clavulanate 875-125 mg tablet Discont inued 1 TAB PO Every 12 hours 14 7 Decemb er 2023 1:00am Dece nehemiah 2023 5:34p m Meloxicam 15 mg tablet Discont inued 15 MG PO Daily July 17, 2024 1:00am July 28, 2024 11:36 am Acetaminoph en (Tylenol Extra Strength) 500 mg tablet Discont inued 0 PO Three times daily July 17, 2024 1:00am November 12, 2024 10:07 am 2 tablets orally three times daily; voltaren Discont inued TOPICA L Twice daily July 17, 2024 1:00am November 12, 2024 10:06 am Acetaminoph en (Tylenol Extra Strength) 500 mg tablet Active 0 PO .PRN November 12, 2024 10:05a m 2 tablets orally PRN; Complies with drug therapy Methylpredn isolone (Medrol (Vega)) 4 mg tablets,dos e pack Discont inued 0 PO per package directions 2024 1:00am Febru tanya2024 10:25 am PO PER PKG DIR for 6 days Ibuprofen 200 mg tablet Discont inued 200 MG PO Every 6 hours as needed 2024 1:00am July 17, 2024 9:39a m Lactobacill us Combination No.4 (Probiotic) 3 billion cell capsule Active 3000 MMU CELLS PO Daily 2024 1:00am administer with a meal Complies with drug therapy Tramadol 50 mg tablet Discont inued 50 MG PO Three times daily as needed for pain 21 7 2024 1:00am July 17, 2024 9:40a m Procedures Procedure Date Performed Status XR finger RT 2nd digit November 12, 2024 10:51am co mpleted Relevant Diagnostic Tests and/or Laboratory Data Diagnostic Imaging Reports Author Sonny Ohara [facility] Authored November 12, 2024 11:08 am Report Dictated Date/Time Dictated By Status Radiology Report November 12, 2024 11:08am Sonny Zavala i, Jr DO completed [facility] [place] [address] XRay Report Signed Patient: Marilu Swain MR#: [id number] : 1975 Acct:[id number] Age/Sex: 49 / F ADM Date: 5 Loc: [id number] Room: Type: [facility] Attending Dr: Noni Barry PATTERN ILLUSTRATOR Copies to: Noni Barry APRN~ Ordering Provider: Noni Barry APRN Date of Service: 11/12/24 XR/XR finger RT 2nd digit: M79.644 - Pain in right finger(s) Right second digit 3 views Reason for exam: Second digit swollen with pain. COMPARISON: None. FINDINGS: No focal soft tissue abnormality. No acute bony process is seen. Joint spaces appear maintained. XR/XR finger RT 2nd digit IMPRESSION: No acute bony process. Impression dictated by: Sonny Ohara Jr., D.O. 11/12/2024 11:10 AM Dictation Location: [place] [address] Transcribed By: [facility] 11/12/24 1110 Dictated By: Sonny Ohara Jr, DO 11/12/24 1108 Signed By: <Electronically signed by Sonny Ohara Jr, DO in [place]> 11/12/24 1110 Vital Signs Vital Reading Result Reference Range Collection Date/Time Height 67 [in_i] November 12, 2024 10:08am Weight 79.83 kg November 12, 2024 10:08am Body Temperature 98.3 [degF] 97.6-99.0 November 12, 025 10:08am Heart Rate 63 /min 60-100 November 12, 2024 10:08am Respiratory rate 18 /min 12-November 12, 025 10:08am Oxygen saturation by Pulse oximetry 100 % 95-100 November 12, 2024 10:08 am BP Systolic 110 mm[Hg] 100-140 November 12, 2024 10:08am BP Diastolic 69 mm[Hg] 60-100 November 12, 2024 10:08am BMI (Body Mass Index) 27.6 kg/m2 November 122024 10:08am Height 67 [in_i] November 17, 2024 1:45pm Weight 80.73 kg November 17, 2024 1:45pm Body Temperature 97.7 [degF] 97.6-99.0 November 17 025 1:45pm Heart Rate 58 /min 60-100 November 17, 2024 1:45pm Oxygen saturation by Pulse oximetry 99 % 95-100 November 17, 2024 1:45p m BP Systolic 112 mm[Hg] 100-140 November 17, 2024 1:45pm BP Diastolic 72 mm[Hg] 60-100 November 17, 2024 1:45pm BMI (Body Mass Index) 27.8 kg/m2 November 172024 1:45pm Advance Directives Advance Directive Response Recorded Date/ Time Advance Directives No July 30 018 10:36am Insurance Providers Guarantor Marilu Swain Address [address] [place] [address] Contact Info. Home Phone: Payer Policy Id Subscriber's Name Subscriber Id Effectiv e Date Expiration Date [facility] [id number] Marilu Swain [id number] [facility] [id number] Marilu Swain [id number] Encounters Encounter Location(s) Arrival/Admit Date Discharge/Depart Date Provider(s) Departed Physician/Prov ider Office Visit -[facility] November 12, 2024 9:58am November 12, 2024 11:55am Zaire Nguyen APRN Departed Clinical -[facility] November 12, 2024 10:48am November 12, 2024 10:49am Zaire Nguyen APRN Departed Physician/Prov ider Office Visit -[facility] November 17, 2024 1:43pm November 17, 2024 2:26pm Zaire Olea DO Recent Diagnosis Onset Date Admit Date Cellulitis of right index finger Unknown November 12, 2024 9:58am Paronychia of right index finger Unknown November 17, 2024 1:43pm Assessments Diagnosis Onset Date Resolution Status Admit Date Cellulitis of right index finger noneactive November 12, 2024 9 :58am Paronychia of right index finger noneactive November 17, 2024 1 :43pm Plan of Treatment Author Noni Barry [facility] Authored November 26, 2024 10:3 8pm Source of infection: insect bite/puncture from raspberry gaona thorn/recent nail appointment. Diffuse swelling and erythema of entire finger down to MCP, significant tenderness. She is afebrile, well appearing. OTC Motrin and Percocet without much relief, she states that Percocet last night only gave her couple hours of sleep. Ddx include cellulitis, felon, tenosynovitis. She has not taken any pain medications today. Dose of Toradol given in office. Slight improvement after Toradol with pain and ROM but still moderately tender with limited ROM. Finger pad is most tender area causing me to consider high suspicion for felon. XR obtained in office. Images and final report reviewed. Per radiology, No acute bony process. No radiodense FB. Possible for stinger/thorn however unable to visualize or palpate FB at this time. There is no fluctuance to indicate need for I&D. Discussed case with collaborating physician, reasonable at this time to start oral atb therapy with close follow up. Rx for Bactrim sent. Advised to take with food. Hx of C. Diff recommended probiotics. Warm compresses, epsom salt warm water soaks. Keep area clean and dry. Referral was placed for ortho advised to contact office today to be seen Saturday. Immediate eval by ER if no improvement in 24-48 hours, sooner if sx worsen, warning s/sx discussed. Patient education printed and provided. Patient verbalizes understanding and is agreeable to treatment plan. Author Saleem Murphy [facility] Authored November 22, 2024 9:26 am Pt to call on Saturday with up date -lengthy discussion with patient today that there is really nothing further that we can offer, as she is already on the antibiotic. She is made aware that typically paronychias are not even covered by antibiotics if they are relatively benign. She voices agreement and understanding. Future Tests Future scheduled test information is unavailable Pending Tests Pending diagnostic test information is unavailable Future Visits Future appointment information is unavailable Referrals to Other Providers Referral information is unavailable Future Procedures Future procedure information is unavailable Future Medications Future medication information is unavailable Patient Instructions Instruction Admit Date Common finger infections - ED discharge instructions November 12, 2024 9:58am
--- OUTSIDE RECORDS SUMMARY | 2024-12-23 12:02 | XMS_ITS | Clinical Summary ---
Author Organization [facility] Address [address] [place] [address] Care Team Providers Care Education And Training Manager Name Role Phone Saleem Murphy MD Primary Care Provider [phone] Allergies Active Allergy Reactions Criticality Noted Date [...] of Treatment Not on file Insurance [employer] Care Teams Education And Training Manager Relationship Specialty Start Date End Date Saleem uMrphy MD PCP - General Family Medicine 07/13/24
[2024-12-24 14:11] LABS: Deamidated Gliadin Abs, IgA 3 units (0-19); Deamidated Gliadin Abs, IgG 2 units (0-19); Immunoglobulin A, Qn, Serum 159 mg/dL (87-352)
== END 2024-12-23 11:59 | disposition home or self-care (01) ==
LOC: LAB 12:00
PROVIDERS: PCP Family Medicine; Visit Provider Internal Medicine Gastroenterology
DX: R19.7 Diarrhea, unspecified (principal)
CPT/HCPCS: 36415; 82784; 86231; 86258; 86364